=== PATIENT | male | born 1995 ===

== ENCOUNTER → 2020-04-08 | Outpatient (CLI) | payer BC | LOC: GMAE 17:38 | PROVIDERS: ATTEND Family Medicine | DX: Z20.2 Contact with and (suspected) exposure to infections with a predominantly sexual mode of transmission (principal); K21.00 Gastro-esophageal reflux disease with esophagitis, without bleeding ==

== ENCOUNTER → 2020-05-06 | Outpatient (CLI) | payer BC | LOC: YCFC.O 12:57 | PROVIDERS: ATTEND Nurse Practitioner | DX: Z20.828 Contact with and (suspected) exposure to other viral communicable diseases (principal) ==

== ENCOUNTER → 2020-05-12 | Outpatient (CLI) | payer BC | LOC: GMAE 19:15 | PROVIDERS: ATTEND Family Medicine | DX: R53.83 Other fatigue (principal) ==

== ENCOUNTER → 2020-06-09 | Outpatient (CLI) | payer BC ==
--- NOTE | 2020-06-10 08:17 | CT ---
EXAM DESCRIPTION: CT ABDOMEN AND PELVIS WITH CONTRAST CLINICAL HISTORY: GENERALIZED ABDOMINAL PAIN COMPARISON: X-ray abdomen April 08, 2020 TECHNIQUE: CT of the abdomen and pelvis are performed during IV bolus administration of 100 mL of Isovue 300. No oral contrast. FINDINGS: In the lower chest, the lung bases are clear. Heart size is normal. CT abdomen Tubular low densities in the right lobe of the liver anterior segment at the level of the gallbladder plane on axial images considered likely benign. Differential considerations would include segmental bile duct dilatation, atypical cysts or partly enhancing meningioma. Sono may be helpful for further evaluation. Small accessory splenule is incidentally noted. Otherwise the spleen, pancreas, gallbladder, adrenal glands, stomach and kidneys are unremarkable in appearance. No inflammation around the pancreas. No renal stones or hydronephrosis. Short segment dilated bowel loop in the false pelvis is seen. Normal caliber loops are seen distally. Normal caliber loops proximally. The exact nature of the dilated bowel loop is uncertain. Differential considerations might include chronic dilatation from focal stricture, short segment bowel duplication with communication to the normal lumen, dilated Meckel's diverticulum. Small bowel series may be helpful. No free air or free fluid. CT pelvis Appendix is not identified. No inflammation around the cecum or terminal ileum or sigmoid colon. Moderate amount of fecal material in the colon. Bladder and distal ureters are negative for stones. Normal enhancement of pelvic vessels. No inguinal or lower pelvic adenopathy. Prostate is normal for age. Bone window images are negative for fracture or lytic lesion. Coronal and sagittal reformatted images confirm the findings. IMPRESSION: Dilated segment of small bowel in the pelvis with no other evidence of bowel obstruction. See above. Low-density tubular structures in the anterior segment right lobe of the liver with likely benign appearance. Sonogram recommended. This exam was performed according to our departmental dose-optimization program, which includes automated exposure control, adjustment of the mA and/or kV according to patient size and/or use of iterative reconstruction technique. Total DLP equals 550.22 mGycm. Electronically signed by: Dutch Richardson MD 06/10/2020 8:15 AM DATABASE ADMINISTRATION MANAGER
== END ==
LOC: CT 13:03
PROVIDERS: ATTEND Internal Medicine Gastroenterology
DX: Z01.812 Encounter for preprocedural laboratory examination (principal); K63.89 Other specified diseases of intestine; K76.9 Liver disease, unspecified